=== PATIENT | male | born 1945 | race Caucasian/White ===

== ENCOUNTER → 2023-08-10 13:35 | Outpatient (REF) | payer OTHER, SELFPAY ==
--- NOTE | 2023-08-24 08:32 | OID.L.PAT ---
Pulmonary Nodule Pat Letter
- -
08/24/23
YULISSA MATA
[id number] [facility]
[place], [place]
Jim DUENAS,
A pulmonary nodule was seen on an imaging study done by [facility]. This was reviewed by the [facility] Pulmonary Nodule Advisory Board and the following recommendation was made:
Recommendation: Follow up with a Printing Press Operator
If you have any questions, please do not hesitate to contact your primary care physician. If you are in need of a Physician, you can go to [email or web address] and click on 'Find a Provider'. Type 'Family Medicine' in the search.
Oncology Nurse Navigator
[facility]
[phone]
--- NOTE | 2023-08-24 08:32 | OID.L.REC ---
Pulmonary Nodule Follow Up
- Recommendation
08/24/23
Pulmonary Nodule Review Recommendations
Your patient, YULISSA MATA, had a pulmonary nodule seen on a CT Chest done on 08/10/23 in the [facility] Radiology Department.
This was reviewed by the [facility] Pulmonary Nodule Advisory Board and the following recommendation was made:
Recommendation: Follow up with a Gauge Controller
If you have any questions please do not hesitate to contact us.
Sincerely,
Oncology Nurse Navigator
[facility]
[phone]
== END ==
LOC: HWRAD 13:35
PROVIDERS: ATTENDING PHYSICIAN Family Medicine
DX: N18.32 Chronic kidney disease, stage 3b (principal); I77.810 Thoracic aortic ectasia
CPT/HCPCS: 71250

== ENCOUNTER → 2023-10-13 | Outpatient (REF) | payer OTHER, SELFPAY | LOC: DHSLP | PROVIDERS: ATTENDING PHYSICIAN Internal Medicine Critical Care Medicine; FAMILY PHYSICIAN Family Medicine | DX: G47.33 Obstructive sleep apnea (adult) (pediatric) (principal); R09.02 Hypoxemia | CPT/HCPCS: 95800 ==

== ENCOUNTER → 2024-05-16 09:43 | Outpatient (REF) | payer OTHER, SELFPAY | LOC: DHSLP 09:43 | PROVIDERS: ATTENDING PHYSICIAN Internal Medicine Critical Care Medicine; FAMILY PHYSICIAN Family Medicine | DX: G47.33 Obstructive sleep apnea (adult) (pediatric) (principal); G47.61 Periodic limb movement disorder | CPT/HCPCS: 95811 ==

== ENCOUNTER → 2024-07-08 09:34 | Outpatient (REF) | payer OTHER, SELFPAY | LOC: HWRAD 09:34 | PROVIDERS: ATTENDING PHYSICIAN Internal Medicine; FAMILY PHYSICIAN Student in an Organized Health Care Education/Training Program | DX: N17.9 Acute kidney failure, unspecified (principal) | CPT/HCPCS: 76770 ==

== ENCOUNTER → 2024-10-20 14:38 | Outpatient (REF) | payer OTHER, SELFPAY | LOC: HWRAD 14:38 | PROVIDERS: ATTENDING PHYSICIAN Student in an Organized Health Care Education/Training Program | DX: Z85.850 Personal history of malignant neoplasm of thyroid (principal); E89.0 Postprocedural hypothyroidism; R59.0 Localized enlarged lymph nodes | CPT/HCPCS: 76536 ==

== ENCOUNTER → 2024-10-26 14:14 | Outpatient (REF) | payer OTHER, SELFPAY | LOC: HWRAD 14:14 | PROVIDERS: ATTENDING PHYSICIAN Internal Medicine Critical Care Medicine; FAMILY PHYSICIAN Student in an Organized Health Care Education/Training Program | DX: R91.8 Other nonspecific abnormal finding of lung field (principal) | CPT/HCPCS: 71250 ==